=== PATIENT | male | born 1980 | race Caucasian/White ===

== ENCOUNTER → 2018-04-05 09:21 | Outpatient (CLI) | payer MEDICARE, SELFPAY ==
[2018-04-05 10:51] LABS: Add Manual Diff / Slide Review NO; Basophils Percent Auto 0.5 % (0-2); Eosinophils Percent Auto 2.6 % (2-4); Hematocrit 44.8 % (41-53); Hemoglobin 15.6 g/dL (13.5-17.5); Lymphocytes Percent Auto 23.3 % (25-40); Mean Corpuscular HGB Conc 34.7 % (30-36); Mean Corpuscular Hemoglobin 31.3 PG (26-34); Mean Corpuscular Volume 90.1 fL (80-100); Monocytes Percent Auto 5.6 % (3-14); Neutrophils Absolute Auto 7000 /uL (3000-5900); Platelet Count 209 X10^3/uL (150-400); Red Blood Cell Count 4.98 X10^6/uL (4.5-5.9); White Blood Cell Count 10.3 X10^3/uL (4.5-11.0)
[2018-04-05 11:19] LABS: Alanine Aminotransferase 36 IU/L (21-72); Albumin 4.2 g/dL (3.5-5.0); Albumin Globulin Ratio 1.4 (1.0-2.8); Alkaline Phosphatase 84 U/L (38-126); Aspartate Aminotransferase 27 IU/L (17-59); BUN Creatinine Ratio 21.4 (6-22); Bilirubin Total 0.6 mg/dL (0.2-1.3); Blood Urea Nitrogen 15 mg/dL (9-20); Calcium 9.3 mg/dL (8.4-10.2); Carbon Dioxide 23 mmol/L (22-32); Chloride 105 mmol/L (98-107); Cholesterol 235 mg/dL (140-199); Estimated Glomerular Filt Rate > 60.0 mL/min (>60); Glucose 96 mg/dL (70-100); HDL Cholesterol 33 mg/dL (40-60); HEMOLYSIS < 15 (0-50); Potassium 4.1 mmol/L (3.4-5.1); Sodium 139 mmol/L (137-145); Total Protein 7.2 g/dL (6.3-8.2)
[2018-04-05 11:27] LABS: Triglycerides 660 mg/dL (35-150)
[2018-04-05 13:46] LABS: TSH w/ Reflex to FT4 2.29 uIU/mL (0.47-4.68)
== END ==
PROVIDERS: PCP Family Medicine; Visit Provider Family Medicine
DX: E78.2 Mixed hyperlipidemia (principal); Z00.00 Encounter for general adult medical examination without abnormal findings; I42.9 Cardiomyopathy, unspecified
CPT/HCPCS: 36415; 80053; 80061; 84443; 85025

== ENCOUNTER → 2019-05-05 06:52 | Outpatient (CLI) | payer OTHER, MEDICAID, SELFPAY ==
--- NOTE | 2019-05-05 | DI.MRI.S_ITS ---
PROCEDURE: MR HEAD/BRAIN WO/W CON INDICATIONS: FOLLOW UP HISTORY OF FACIAL ANGIOFIBROMA EXCISED TECHNIQUE: Noncontrast axial T1 spin echo, axial T2 fast spin echo, sagittal and axial FLAIR, coronal T2 fast spin echo, axial gradient echo, axial diffusion and ADC through the brain. After the administration of contrast, axial and coronal 3D VIBE or T1 spin echo with fat saturation through the brain. COMPARISON: [facility], CT, HEAD WITHOUT CONTRAST, 12/02/2013, 15:47. [facility], CT, HEAD WITHOUT CONTRAST, 11/23/2014, 11:31. [facility], CT, HEAD WITHOUT CONTRAST, 06/21/2013, 11:37. [facility], MR, ICVGF-IPGK-RGAN W&WO CONTRAST, 02/12/2013, 16:39. [facility], CT, HEAD WITHOUT CONTRAST, 09/02/2013, 11:38. [facility], MR, BRAIN W&WO CONTRAST, 12/02/2014, 9:56. [facility], MR, BRAIN W&WO CONTRAST, 12/27/2016, 7:51. [facility], MR, BRAIN W&WO CONTRAST, 04/05/2016, 7:51. [facility], MR, BRAIN W&WO CONTRAST, 12/13/2017, 13:24. FINDINGS: Image quality: Excellent. CSF Spaces: Basal cisterns are patent. No extra-axial fluid collections. Ventricles are normal in size and shape. Brain: No midline shift. No intracranial bleeds or masses. A small area of subcortical T2/FLAIR hyperintensity in the inferior left frontal lobe appears unchanged. No abnormal intracranial enhancement. The brainstem appears normal. There are several foci of T2/FLAIR hyperintensity in the periventricular white matter bilaterally, most likely secondary to chronic small vessel ischemic changes. Diffusion-weighted images demonstrate no acute ischemic insults. Normal intravascular flow voids are present. Skull and face: Postsurgical changes are again noted in the left frontal area with associated changes in frontal calvarium, left ethmoid and maxillary sinus and part of the nasal septum. Overall, there is no significant change from last exam. No abnormal enhancement Orbits appear normal. Sinuses: Mastoids appear clear. Mild maxillary sinus mucosal thickening bilaterally. IMPRESSION: 1. Stable postsurgical changes in the left frontal bone, left ethmoid and maxillary sinuses and left nasal septum. No recurrent mass or abnormal intracranial enhancement. Dictated by: Alfredo Nieves M.D. on 05/05/2019 at 9:50 Approved by: Alfredo Nieves M.D. on 05/05/2019 at 11:40
== END ==
PROVIDERS: PCP Student in an Organized Health Care Education/Training Program; Visit Provider Student in an Organized Health Care Education/Training Program
DX: Z09 Encounter for follow-up examination after completed treatment for conditions other than malignant neoplasm (principal); Z86.018 Personal history of other benign neoplasm
CPT/HCPCS: 70553

== ENCOUNTER → 2019-08-10 15:32 | Outpatient (ROUT) | payer MEDICARE, MEDICAID, SELFPAY ==
[2019-08-10 15:47] LABS: Ur Specific Gravity Normal (Normal); Urine Tetrahydrocannabinol Positive (Negative); Urine pH Normal (Normal)
[2019-08-10 15:48] LABS: UR Morphine/Opiate cutoff 300 Positive (Negative); Ur Creatinine Normal (Normal); Urine Amphetamines Negative (Negative); Urine Barbiturates Negative (Negative); Urine Benzodiazepines Positive (Negative); Urine Cocaine Negative (Negative); Urine MDMA Negative (Negative); Urine Methadone Negative (Negative); Urine Methamphetamines Negative (Negative); Urine Oxycodone Positive (Negative); Urine Phencyclidine Negative (Negative); Urine Tricyclic Antidepressant Negative (Negative)
== END ==
PROVIDERS: PCP Student in an Organized Health Care Education/Training Program; Visit Provider Student in an Organized Health Care Education/Training Program
DX: G89.29 Other chronic pain (principal)
CPT/HCPCS: 80305

== ENCOUNTER 2020-06-13 14:19 | Emergency (ER) | payer MEDICARE, MEDICAID, SELFPAY ==
[2020-06-13 14:47] VITALS: BP 154/95; PULSE 91; RESP 20; TEMP 36.8; O2SAT 99; BMI 33.2
--- NOTE | 2020-06-13 15:44 | DI.RAD.S_ITS ---
PROCEDURE: XR THORACIC SPINE 3V INDICATIONS: lumbar and low thoraci pain TECHNIQUE: 3 views of the thoracic spine were acquired. COMPARISON: None. FINDINGS: Bones: No fractures or dislocations. No suspicious bony lesions. Twelve pairs of ribs are noted, and appear intact where visualized. Mild generalised thoracic spine degenerative disc disease but no area of compression fracture or subluxation is found. Soft tissues: No paravertebral stripe thickening. IMPRESSION: Chronic appearing mild to moderate degenerative disc disease overall, without trauma or subluxation. Dictated by: Chente Esquivel M.D. on 06/13/2020 at 17:00 Approved by: Chente Esquivel M.D. on 06/13/2020 at 17:00
--- NOTE | 2020-06-13 15:44 | DI.RAD.S_ITS ---
PROCEDURE: XR LUMBAR SPINE 2-3V INDICATIONS: lumbar and low thoraci pain TECHNIQUE: 3 views of the lumbar spine were acquired. COMPARISON: None. FINDINGS: Bones: 5 [id number] vertebrae are present. There is levo scoliotic bony alignment centered at L2. No vertebral body compression fractures. No suspicious bony lesions. Moderate degenerative disc disease is present overall, but most pronounced at L5-S1 and L2-L3. There is a superior endplate mild impaction at L3, likely chronic by appearance. Soft tissues: Overlying bowel gas pattern is normal. No suspicious soft tissue calcifications. IMPRESSION: No definite acute disease. Convex leftward scoliosis centered at L2. L3 superior endplate is mildly impacted inferiorly but the appearance is likely chronic by morphology. No definite acute compression fracture is found. Dictated by: Chente Esquivel M.D. on 06/13/2020 at 16:58 Approved by: Chente Esquivel M.D. on 06/13/2020 at 16:59
[2020-06-13 16:00] VITALS: PULSE 81; RESP 26; O2SAT 97
[2020-06-13 16:01] VITALS: BP 179/85; PULSE 79; RESP 24; O2SAT 97
[2020-06-13] MEDS: MORPHINE 4 MG/ML INJ IV (16:23)
[2020-06-13] MEDS: KETOROLAC 60 MG/2 ML VIAL 15 MG IV (16:23)
[2020-06-13 16:30] VITALS: PULSE 76; RESP 22; O2SAT 96
[2020-06-13 16:31] VITALS: BP 173/102; PULSE 79; RESP 18; O2SAT 96
--- NOTE | 2020-06-13 16:37 | ED.BACK ---
HPI - Back Pain/Injury <BRAD Canales - Last Filed: 06/14/20 01:29> General Chief Complaint: Back Pain/Injury Stated Complaint: Back Pain Time Seen by Provider: 06/13/20 14:59 Source: patient Mode of arrival: EMS Limitations: no limitations History of Present Illness HPI Narrative: This is a 40-year-old male, smoker, who has a history of Marfan's syndrome with rotary joints who presents to ED with EMS with localized severe lumbar and lower thoracic pain. Patient reports pain started 4-5 days ago but it has been progressively getting worse and he associated with after usual/routine boat ride. He denies recent injury or trauma, lifting heavy objects or fall. He reports pain increases with movements, turning, or changing in position. Patient reports he is ambulatory and has been using a walker but he takes time for him to adjust his positions. He has been taking oxycodone and OxyContin with Valium as his routine pain management without much improvement. Patient denies fever, chills, nausea or vomiting, rash, history of spine instrumentation or IV drug use. Patient denies incontinence for urine or stool. He denies urinary symptoms. He denies tingling or numbness to lower extremities but feels his right medial knee feels cold. He voided in the urinal which was a bedside. Related Data Home Medications Medication Instructions Recorded Confirmed diazepam 10 mg tablet 10 mg PO TID 06/18/19 06/18/19 lorazepam 2 mg tablet 2 mg PO BEDTIME 06/18/19 06/18/19 zolpidem 10 mg tablet 10 mg PO BEDTIME 06/18/19 06/18/19 amlodipine 06/14/20 aspirin 81 mg 06/14/20 diazepam 06/14/20 oxycodone 06/14/20 oxycodone [OxyContin] mg PO 06/14/20 pantoprazole PO 06/14/20 Allergies Allergy/AdvReac Type Severity Reaction Status Date / Time heparin Allergy Severe SEVERE Verified 06/13/20 16:29 REACTION WITH DROP IN PLATELETS Review of Systems <BRAD Canales - Last Filed: 06/14/20 01:29> Review of Systems Narrative: General: Denies fever, chills, fatigue, malaise, sweats. HEENT: Denies sinus pain, ear pain, sore throat, difficulty swallowing, dizziness. Respiratory: Denies dyspnea, cough, wheezing, hemoptysis, sputum. Cardiovascular: Denies chest pain, palpitations, orthopnea, edema. Gastrointestinal: Denies nausea, vomiting, abdominal pain, diarrhea, constipation, melena. : Denies dysuria, frequency, incontinence, hematuria, urinary retention. Musculoskeletal: See HPI Skin: Denies rash, skin lesions, or other. Neurologic: Denies weakness, headache, numbness, change in speech, confusion, seizures, incoordination. Psychiatric: No concerning psychosocial issues. 12-point review of systems is negative except for those stated above. Patient History <BRAD Canales - Last Filed: 06/14/20 01:29> Medical History (Updated 06/14/20 @ 00:59 by BRAD Canales) Excessive daytime sleepiness (Chronic) Fatigue (Chronic) GERD (gastroesophageal reflux disease) (Acute) Hyperlipidemia (Acute) Marfan's syndrome (Acute) Obesity (BMI 30-39.9) (Chronic) Obstructive sleep apnea (Chronic) Social History Smoking Status: Current some day smoker Smoking Status: Current some day smoker alcohol intake frequency: 0-2 drinks per day Substance Use Type: marijuana Exam <BRAD Canales - Last Filed: 06/14/20 01:29> Narrative Exam Narrative: GEN: Alert, oriented x 3, well appearing and nourished, and moderate distress from pain. Facial grimacing with moaning and groaning when patient has to change body position. Head: Normal cephalic, atraumatic. No scalp or temporal tenderness, palpable mass or rash. EYES: Pupils are equal, round, and reactive to light and accommodation. Extraocular muscles are intact bilaterally. There is no subconjunctival hemorrhage, exudate and sclera non-icteric. ENT: Hearing grossly intact. Nose without bleeding, purulent discharge or deviation. Mucous membrane moist, no mucosal lesion. Throat without erythema, tonsillar hypertrophy or exudate. Uvula in midline, airway patent. Neck: Trachea in midline. No JVD, non-tender without lymphadenopathy. No masses or thyroid megaly. Supple, non-tender and no meningeal signs. CARDIAC: Normal regular rate and rhythm without murmurs, gallops, or rubs. No chest wall tenderness. No peripheral edema, cyanosis or pallor. Capillary refill is less than 2 seconds. RESPIRATORY: Lungs are clear to auscultate bilaterally. No cough, wheezes, rales, or rhonchi. No stridor, respiratory distress, increase work of breathing, or accessary muscle used. ABD: Abdomen soft, nontender and non-distended. No guarding or rebound tenderness to palpate. Bowel sounds are normal in all 4 quadrants. There is no palpable masses or organomegaly. EXT: Full painless ROM of all extremities with no loss of sensation, strength, effusion or edema. Loose and flexible joints in extremities. SKIN: Warm, dry, normal color for patient. No erythema, lesions or rash over visible areas. NEUROLOGICAL: Alert and oriented to place, time and person. Sensation and motor function intact bilaterally. No facial droops, dysphasia. PSYCHIATRIC: Good judgement and reason, without hallucinations, abnormal affect or abnormal behaviors during the examination. Patient is not suicidal. Initial Vital Signs Initial Vital Signs: Vital Signs Temperature 98.3 F 06/13/20 14:47 Pulse Rate 91 H 06/13/20 14:47 Respiratory Rate 06/13/20 14:47 Blood Pressure 154/95 H 06/13/20 14:47 Pulse Oximetry 99 06/13/20 14:47 Back/Spine/Pelvis Thoracic/Lumbar Spine: No surgical scar(s) present, No mass, pain with thoraco-lumbar ROM, No paraspinal tenderness, thoraco-lumbar ROM limited, thoracic spinal tenderness, lumbar spinal tenderness, straight leg raise positive and other (intact rectal tone (standby assistance by MOVEMANChay Parker)) Sacroiliac Joints: nontender Sacrum: no ecchymosis, no erythema and no swelling Coccyx: no swelling and no tenderness <Alexsandra Lambert MD - Last Filed: 06/14/20 18:56> Initial Vital Signs Initial Vital Signs: Vital Signs Temperature 98.3 F 06/13/20 14:47 Pulse Rate 91 H 06/13/20 14:47 Respiratory Rate 06/13/20 14:47 Blood Pressure 154/95 H 06/13/20 14:47 Pulse Oximetry 99 06/13/20 14:47 Scores <BRAD Canales - Last Filed: 06/14/20 01:29> GCS [place] coma scale eye opening: Spontaneous Aminata coma scale verbal response: Orientated Aminata coma scale motor response: Obey commands Aminata coma scale total score: 15 Course <BRAD Canales - Last Filed: 06/14/20 01:29> Orders Ordered: Discontinued Medications Ketorolac Tromethamine (Toradol) 15 mg IV NOW ONE Stop: 06/13/20 15:48 Last Admin: 06/13/20 16:23 Dose: 15 mg Documented by: BTONER Morphine Sulfate (Morphine) 4 mg IV NOW ONE Stop: 06/13/20 15:45 Last Admin: 06/13/20 16:23 Dose: 4 mg Documented by: BTONER Vital Signs Vital signs: Vital Signs - 8 hr 06/13/20 17:00 Pulse Rate 75 Respiratory Rate 13 Pulse Oximetry 97 <Alexsandra Lambert MD - Last Filed: 06/14/20 18:56> Orders Ordered: Discontinued Medications Ketorolac Tromethamine (Toradol) 15 mg IV NOW ONE Stop: 06/13/20 15:48 Last Admin: 06/13/20 16:23 Dose: 15 mg Documented by: BTONER Morphine Sulfate (Morphine) 4 mg IV NOW ONE Stop: 06/13/20 15:45 Last Admin: 06/13/20 16:23 Dose: 4 mg Documented by: BTONER Vital Signs Vital signs: Vital Signs - 8 hr 06/13/20 17:00 Pulse Rate 75 Respiratory Rate 13 Pulse Oximetry 97 MDM - Back Pain/Injury <BRAD Canales - Last Filed: 06/14/20 01:29> Differential Diagnosis Differential diagnosis: Likely strain of lumbar region, thoracic back pain, discitis and other (Spinal stenosis, spine fracture, spinal subluxation, pyelonephritis,) Medical Records Attestation: I reviewed the patient's medical records. Lab Data Attestation: I reviewed the patient's lab results. Result diagrams: 06/13/20 17:27 06/13/20 17:27 Labs: Lab Results 06/13/20 06/13/20 Range/Units 17:27 17:27 WBC 8.0 (4.5-11.0) X10^3/uL RBC 4.62 (4.5-5.9) X10^6/uL Hgb 14.6 (13.5-17.5) g/dL Hct 41.6 (41-53) % MCV 90.0 (80-100) fL MCH 31.5 (26-34) PG MCHC 35.0 (30-36) % RDW 13.0 (11.6-14.8) % Plt Count 181 (150-400) X10^3/uL Neut % (Auto) 60.3 (50-75) % Lymph % (Auto) 30.8 (25-40) % [place] % (Auto) 6.2 (3-14) % Eos % (Auto) 2.2 (2-4) % Baso % (Auto) 0.5 (0-2) % Neut # (Auto) 4800 (8011-4379) /uL Lymph # (Auto) 2500 (5846-9320) /uL [place] # (Auto) 500 (0-900) /uL Eos # (Auto) 200 (0-450) /uL Baso # (Auto) 0 (0-100) /uL Sodium 139 (137-145) mmol/L Potassium 4.3 (3.4-5.1) mmol/L Chloride 107 (98-107) mmol/L Carbon Dioxide 25 (22-32) mmol/L BUN 19 (9-20) mg/dL Creatinine 0.93 (0.66-1.25) mg/dL Estimated GFR > 60.0 (>60) mL/min BUN/Creatinine Ratio 20.4 (6-22) Glucose 94 (70-100) mg/dL Calcium 9.6 (8.4-10.2) mg/dL Urine Dip Bedside Urine Glucose Negative Bedside Urine Bilirubin - Negative Bedside Urine Ketone - Negative Urine Specific Cos Cob 1.020 Bedside Urine Occult Blood - Negative Bedside Urine pH 6.5 Bedside Urine Protein - Negative Bedside Urine Urobilinogen - Negative Bedside Urine Nitrite - Negative Bedside Urine Leukocytes - Negative Esterase Imaging Data XR-Thoracic: Radiologist's Impression: [address] [address] XRay Report Signed Patient: Ap Giron EMR#: [id number] : 1980Acct:[id number] Age/Sex: 40 / MDate of Service: 06/13/20 Loc: ED Accession Number: [id number] Procedure: XR thoracic spine 3V Ordering Provider: Scra BravoP PROCEDURE: XR THORACIC SPINE 3V INDICATIONS: lumbar and low thoraci pain TECHNIQUE: 3 views of the thoracic spine were acquired. COMPARISON: None. FINDINGS: Bones: No fractures or dislocations. No suspicious bony lesions. Twelve pairs of ribs are noted, and appear intact where visualized. Mild generalised thoracic spine degenerative disc disease but no area of compression fracture or subluxation is found. Soft tissues: No paravertebral stripe thickening. IMPRESSION: Chronic appearing mild to moderate degenerative disc disease overall, without trauma or subluxation. Dictated by: Chente Esquivel M.D. on 06/13/2020 at 17:00 Approved by: Chente Esquivel M.D. on 06/13/2020 at 17:00 XR-Lumbar: Radiologist's Impression: [place] [address] XRay Report Signed Patient: Ap Giron EMR#: [id number] : 1980Acct:[id number] Age/Sex: 40 / MDate of Service: 06/13/20 Loc: ED Accession Number: [id number] Procedure: XR lumbar spine 2-3V Ordering Provider: Scar rBavo [facility] PROCEDURE: XR LUMBAR SPINE 2-3V INDICATIONS: lumbar and low thoraci pain TECHNIQUE: 3 views of the lumbar spine were acquired. COMPARISON: None. FINDINGS: Bones: 5 [id number] vertebrae are present. There is levo scoliotic bony alignment centered at L2. No vertebral body compression fractures. No suspicious bony lesions. Moderate degenerative disc disease is present overall, but most pronounced at L5-S1 and L2-L3. There is a superior endplate mild impaction at L3, likely chronic by appearance. Soft tissues: Overlying bowel gas pattern is normal. No suspicious soft tissue calcifications. IMPRESSION: No definite acute disease. Convex leftward scoliosis centered at L2. L3 superior endplate is mildly impacted inferiorly but the appearance is likely chronic by morphology. No definite acute compression fracture is found. Dictated by: Chente Esquivel M.D. on 06/13/2020 at 16:58 Approved by: Chente Esquivel M.D. on 06/13/2020 at 16:59 [facility] Narrative Medical decision making narrative: This is a 40-year-old male who has history of Marfan's syndrome and has very loose and flexible joints who takes OxyContin, oxycodone, Valium daily for pain management presents to ED with progressively worsening lower thoracic and lumbar back pain last 4-5 days. Patient denies history of using IV drug use, instrumentation of spine. Patient denies incontinence, saddle anesthesia. Patient had intact rectal tone per exam. Urine test is not indicating infection. Unremarkable CBC without leukocytosis and normal chemistry test. Physical exam on his back without rash, radiculopathy and he had spine tenderness in low back. Given the patient's Marfan's syndrome and flexible/loose joints with non-traumatic back pain, MRI test was the first choice but they have a full schedule today and was unable to obtain the test today. Given the situation, x-ray test was obtained on lumbar and thoracic. Lumbar x-ray shows no definite acute disease appreciated. Appears to be patient has scoliosis centered at L2, L3 and appearance is likely chronic. There is no definite acute compression fracture appreciated. Thoracic x-ray test shows chronic appearing mild to moderate degenerative disc disease overall without trauma or subluxation appreciated. Patient was medicated with IV Toradol and Morphine initially. Patient reports recurring pain before leaving ED and informed it is okay to take his own medications. Findings were discussed with the patient of not being able to pursue MRI test today. He was able to ambulate with a walker in stable gait with minimal assistance. Patient states he sees salesforce specialist at when offered a referral to [facility]. In shared decision making, patient elects to follow-up his primary care physician and orthopedic/salesforce specialist for further evaluation and possible advanced imaging test with return precautions to ED. no new pain medication has been prescribed since he takes oxycodone and OxyContin. Patient advised to take [id number] Tylenol and NSAIDS to add along the current medication regimen. Patient staffed with Dr. Lambert with physical findings, xray test result, lab result and treatment plan. <Alexsandra Lambert MD - Last Filed: 06/14/20 18:56> Lab Data Labs: Lab Results 06/13/20 06/13/20 Range/Units 17:27 17:27 WBC 8.0 (4.5-11.0) X10^3/uL RBC 4.62 (4.5-5.9) X10^6/uL Hgb 14.6 (13.5-17.5) g/dL Hct 41.6 (41-53) % MCV 90.0 (80-100) fL MCH 31.5 (26-34) PG MCHC 35.0 (30-36) % RDW 13.0 (11.6-14.8) % Plt Count 181 (150-400) X10^3/uL Neut % (Auto) 60.3 (50-75) % Lymph % (Auto) 30.8 (25-40) % [place] % (Auto) 6.2 (3-14) % Eos % (Auto) 2.2 (2-4) % Baso % (Auto) 0.5 (0-2) % Neut # (Auto) 4800 (6713-2194) /uL Lymph # (Auto) 2500 (7950-3892) /uL [place] # (Auto) 500 (0-900) /uL Eos # (Auto) 200 (0-450) /uL Baso # (Auto) 0 (0-100) /uL Sodium 139 (137-145) mmol/L Potassium 4.3 (3.4-5.1) mmol/L Chloride 107 (98-107) mmol/L Carbon Dioxide 25 (22-32) mmol/L BUN 19 (9-20) mg/dL Creatinine 0.93 (0.66-1.25) mg/dL Estimated GFR > 60.0 (>60) mL/min BUN/Creatinine Ratio 20.4 (6-22) Glucose 94 (70-100) mg/dL Calcium 9.6 (8.4-10.2) mg/dL Urine Dip Bedside Urine Glucose Negative Bedside Urine Bilirubin - Negative Bedside Urine Ketone - Negative Urine Specific Cos Cob 1.020 Bedside Urine Occult Blood - Negative Bedside Urine pH 6.5 Bedside Urine Protein - Negative Bedside Urine Urobilinogen - Negative Bedside Urine Nitrite - Negative Bedside Urine Leukocytes - Negative Esterase Discharge Plan Departure Patient Disposition: Home Clinical Impression: Low back pain Qualifiers: Chronicity: unspecified Back pain laterality: bilateral Sciatica presence: without sciatica Qualified Code(s): M54.5 - Low back pain Discharge Date/Time: 06/13/20 18:35 Instructions: DI for Low Back Pain Activity Restrictions/Additional Instructions: You have been diagnosed with [low back pain, in low thoracic and lumbar region. Blood test are assuring. X-rays test does not show acute findings but mild to moderate degenerative disc disease. You may require further imaging test. Unfortunately we were not able to get MRI test today.]. What to do: *Take your medications as directed. *Follow up with your primary care provider in 2-3 days, call for an appointment. Let them know you were seen in the ED and that we asked you to be seen in follow up. *Return to ED if you have any new, worsening, or concerning symptoms, such as chest pain, breathing difficulty, unable to tolerate fluids, incontinence for bladder or stool, increasing pain/numbness/weakness, fever, rash or other acute concerns Prescriptions: No Action amlodipine 5 mg tablet RF: 0 pantoprazole 40 mg tablet,delayed release (DR/EC) PO RF: 0 diazepam 10 mg tablet RF: 0 oxycodone 20 mg tablet RF: 0 oxycodone [OxyContin] 80 mg tablet,oral only,ext.rel.12 hr PO RF: 0 aspirin 81 mg RF: 0 zolpidem 10 mg tablet 10 mg PO BEDTIME RF: 0 lorazepam 2 mg tablet 2 mg PO BEDTIME RF: 0 diazepam 10 mg tablet 10 mg PO TID RF: 0 Referrals: Ap Morrissey MD [Primary Care Provider] - <Alexsandra Lambert MD - Last Filed: 06/14/20 18:56> Cosign ED Attending Cosvipinature Attestation: I was immediately available in the department for consultation throughout this patient's visit. I agree with documentation as above. Alexsandra Lambert MD
--- NOTE | 2020-06-13 16:37 | PC.NURSE ---
pt provided pain medication, assisted in removing pants for xray.
[2020-06-13 17:00] VITALS: PULSE 75; RESP 13; O2SAT 97
[2020-06-13 17:32] LABS: Add Manual Diff / Slide Review NO; Basophils Absolute Auto 0 /uL (0-100); Basophils Percent Auto 0.5 % (0-2); Eosinophils Absolute Auto 200 /uL (0-450); Eosinophils Percent Auto 2.2 % (2-4); Hematocrit 41.6 % (41-53); Hemoglobin 14.6 g/dL (13.5-17.5); Lymphocytes Absolute Auto 2500 /uL (1100-4500); Lymphocytes Percent Auto 30.8 % (25-40); Mean Corpuscular Hemoglobin 31.5 PG (26-34); Monocytes Absolute Auto 500 /uL (0-900); Monocytes Percent Auto 6.2 % (3-14); Neutrophils Absolute Auto 4800 /uL (1500-7000); Neutrophils Percent Auto 60.3 % (50-75); Platelet Count 181 X10^3/uL (150-400); Red Blood Cell Count 4.62 X10^6/uL (4.5-5.9)
[2020-06-13 17:45] LABS: BUN Creatinine Ratio 20.4 (6-22); Blood Urea Nitrogen 19 mg/dL (9-20); Calcium 9.6 mg/dL (8.4-10.2); Carbon Dioxide 25 mmol/L (22-32); Chloride 107 mmol/L (98-107); Estimated Glomerular Filt Rate > 60.0 mL/min (>60); Glucose 94 mg/dL (70-100); HEMOLYSIS 15 (0-50); Potassium 4.3 mmol/L (3.4-5.1); Sodium 139 mmol/L (137-145)
== END 2020-06-13 18:35 | disposition home or self-care (01) ==
PROVIDERS: Emergency Provider Nurse Practitioner Family; PCP Family Medicine
DX: M54.5 Low back pain (principal); M54.6 Pain in thoracic spine; Q87.43 Marfan syndrome with skeletal manifestation
CPT/HCPCS: 36415; 72072; 72100; 80048; 81003; 85025; 96374; 96375; 99283; 99284; J1885; J2270

== ENCOUNTER → 2020-12-07 08:18 | Outpatient (CLI) | payer MEDICARE, MEDICAID, SELFPAY | PROVIDERS: PCP Family Medicine; Referring Provider Family Medicine; Visit Provider Family Medicine | DX: F11.90 Opioid use, unspecified, uncomplicated (principal); Z79.899 Other long term (current) drug therapy | CPT/HCPCS: 80307; G0481 ==

== ENCOUNTER → 2021-04-08 08:20 | Outpatient (CLI) | payer MEDICARE, MEDICAID, SELFPAY ==
[2021-04-08 09:35] LABS: Add Manual Diff / Slide Review NO; Basophils Absolute Auto 0 /uL (0-100); Basophils Percent Auto 0.5 % (0-2); Eosinophils Absolute Auto 200 /uL (0-450); Eosinophils Percent Auto 1.6 % (2-4); Hematocrit 42.7 % (41-53); Hemoglobin 14.4 g/dL (13.5-17.5); Lymphocytes Absolute Auto 2200 /uL (1100-4500); Lymphocytes Percent Auto 22.8 % (25-40); Mean Corpuscular HGB Conc 33.7 % (30-36); Mean Corpuscular Volume 88.9 fL (80-100); Monocytes Absolute Auto 700 /uL (0-900); Neutrophils Absolute Auto 6400 /uL (1500-7000); Neutrophils Percent Auto 68.1 % (50-75); Platelet Count 180 X10^3/uL (150-400); White Blood Cell Count 9.4 X10^3/uL (4.5-11.0)
[2021-04-08 10:23] LABS: BUN Creatinine Ratio 17.3 (6-22); Blood Urea Nitrogen 14 mg/dL (9-20); Calcium 9.6 mg/dL (8.4-10.2); Carbon Dioxide 28 mmol/L (22-32); Chloride 104 mmol/L (98-107); Cholesterol 176 mg/dL (140-199); Estimated Glomerular Filt Rate > 60.0 mL/min (>60); Glucose 97 mg/dL (70-100); HDL Cholesterol 43 mg/dL (40-60); HEMOLYSIS < 15 (0-50); LDL Cholesterol Calculated 103 mg/dL (<100); Potassium 4.6 mmol/L (3.4-5.1); Sodium 139 mmol/L (137-145); Triglycerides 150 mg/dL (35-150)
== END ==
PROVIDERS: PCP Family Medicine; Referring Provider Family Medicine; Visit Provider Family Medicine
DX: D50.8 Other iron deficiency anemias (principal); E78.2 Mixed hyperlipidemia; I10 Essential (primary) hypertension; F11.90 Opioid use, unspecified, uncomplicated
CPT/HCPCS: 36415; 80048; 80061; 85025

== ENCOUNTER → 2021-06-29 10:39 | Outpatient (CLI) | payer MEDICARE, MEDICAID, SELFPAY ==
[2021-06-29 12:57] LABS: UR Morphine/Opiate cutoff 300 Negative (Negative); Ur Creatinine Normal (Normal); Ur Specific Gravity Normal (Normal); Urine Amphetamines Negative (Negative); Urine Barbiturates Negative (Negative); Urine Benzodiazepines Positive (Negative); Urine Cocaine Negative (Negative); Urine MDMA Negative (Negative); Urine Methamphetamines Negative (Negative); Urine Phencyclidine Negative (Negative); Urine Tetrahydrocannabinol Positive (Negative); Urine pH Normal (Normal)
[2021-06-29 12:58] LABS: Urine Methadone Negative (Negative); Urine Oxycodone Positive (Negative); Urine Tricyclic Antidepressant Negative (Negative)
== END ==
PROVIDERS: PCP Family Medicine; Referring Provider Family Medicine; Visit Provider Family Medicine
DX: F11.90 Opioid use, unspecified, uncomplicated (principal); Z79.899 Other long term (current) drug therapy
CPT/HCPCS: 80305

== ENCOUNTER 2022-07-05 12:45 | Emergency (ER) | payer MEDICARE, MEDICAID, SELFPAY ==
[2022-07-05] VITALS (7 sets, daily range): BP systolic 145–160; BP diastolic 97–105; PULSE 71–100; RESP 16–20; TEMP 36.8–37.1; O2SAT 95–100; BMI 36.7
[2022-07-05 13:57] LABS: Add Manual Diff / Slide Review NO; Basophils Absolute Auto 100 /uL (0-100); Basophils Percent Auto 0.9 % (0-2); Eosinophils Absolute Auto 100 /uL (0-450); Eosinophils Percent Auto 0.7 % (2-4); Hematocrit 44.9 % (41-53); Hemoglobin 15.8 g/dL (13.5-17.5); Lymphocytes Absolute Auto 1700 /uL (1100-4500); Lymphocytes Percent Auto 24.4 % (25-40); Mean Corpuscular HGB Conc 35.2 % (30-36); Mean Corpuscular Hemoglobin 31.3 PG (26-34); Mean Corpuscular Volume 88.9 fL (80-100); Monocytes Absolute Auto 500 /uL (0-900); Monocytes Percent Auto 7.3 % (3-14); Neutrophils Absolute Auto 4800 /uL (1500-7000); Neutrophils Percent Auto 66.7 % (50-75); Platelet Count 208 X10^3/uL (150-400); Red Blood Cell Count 5.06 X10^6/uL (4.5-5.9); Red Cell Distribution Width 13.4 % (11.6-14.8); White Blood Cell Count 7.1 X10^3/uL (4.5-11.0)
[2022-07-05 14:17] LABS: Alanine Aminotransferase 21 IU/L (<50); Albumin 4.4 g/dL (3.5-5.0); Albumin Globulin Ratio 1.3 (1.0-2.8); Alkaline Phosphatase 75 U/L (38-126); Aspartate Aminotransferase 21 IU/L (17-59); BUN Creatinine Ratio 11.4 (6-22); Bilirubin Total 0.8 mg/dL (0.2-1.3); Blood Urea Nitrogen 10 mg/dL (9-20); Calcium 9.4 mg/dL (8.4-10.2); Carbon Dioxide 27 mmol/L (22-32); Chloride 105 mmol/L (98-107); Estimated Glomerular Filt Rate > 60 mL/min (>60); Globulin 3.3 g/dL (1.7-4.1); Glucose 107 mg/dL (70-100); HEMOLYSIS < 15 (0-50); Lipase 55 U/L (23-300); Potassium 4.3 mmol/L (3.4-5.1); Sodium 142 mmol/L (137-145); Total Protein 7.7 g/dL (6.3-8.2)
--- NOTE | 2022-07-05 16:44 | ED.ABDPAIN ---
HPI - Abdominal Pain General Chief Complaint: Abdominal Pain Stated Complaint: bump/pain on belly button Time Seen by Provider: 07/05/22 16:42 Source: patient Mode of arrival: Family Vehicle History of Present Illness HPI narrative: Patient is a 42-year-old male with history of umbilical hernia hypertension hyperlipidemia diaphragmatic hernia presenting today with in his abdomen. He said were his umbilicus use to be agrees to be some pouching, he says it has happened 3 times he was able to push it in but his abdomen is still sore. He has no nausea no vomiting he is passing gas. No fevers or chills. Related Data Home Medications Medication Instructions Recorded Confirmed lorazepam 2 mg tablet 2 mg PO BEDTIME 06/18/19 06/16/20 amlodipine 5 mg tablet 06/14/20 06/16/20 aspirin 81 mg 06/14/20 06/16/20 diazepam 10 mg tablet 06/14/20 06/16/20 oxycodone 20 mg tablet 06/14/20 06/16/20 oxycodone 80 mg tablet,crush mg PO 06/14/20 06/16/20 resistant,extended release 12 hr (OxyContin) pantoprazole 40 mg tablet,delayed PO 06/14/20 06/16/20 release Allergies Allergy/AdvReac Type Severity Reaction Status Date / Time heparin Allergy Severe SEVERE Verified 07/05/22 13:12 REACTION WITH DROP IN PLATELETS Review of Systems Review of Systems Narrative: GENERAL: Denies chills, fatigue, malaise, fever, sweats, travel HEENT: Denies sinus pain, ear pain, sore throat, difficulty swallowing, neck pain RESPIRATORY: Denies dyspnea, cough, wheezing, hemoptysis, sputum. CARDIOVASCULAR: Denies chest pain, palpitations, orthopnea, edema GASTROINTESTINAL: See HPI : Denies dysuria, frequency, incontinence, hematuria, urinary retention, flank pain. MUSCULOSKELETAL: Denies weakness, joint pain, or bony pain SKIN: No rash, no erythema, no pruritus NEUROLOGIC: Denies weakness, dizziness, headache, numbness, change in speech, confusion PSYCHIATRIC: No concerning psychosocial issues. 12 point review of systems is negative except for those stated above and HPI Patient History Medical History Anuradha-Danlos syndrome Excessive daytime sleepiness Fatigue GERD (gastroesophageal reflux disease) Hyperlipidemia Marfan's syndrome Obesity (BMI 30-39.9) Obstructive sleep apnea Social History Smoking Status: Current some day smoker Smoking Status: Current some day smoker tobacco type: cigarettes alcohol intake frequency: 0-2 drinks per day Substance Use Type: marijuana Exam Initial Vital Signs Initial Vital Signs: Vital Signs Temperature 98.8 F 07/05/22 13:13 Pulse Rate 100 H 07/05/22 13:13 Respiratory Rate 20 07/05/22 13:13 Blood Pressure 160/105 H 07/05/22 13:13 Pulse Oximetry 100 07/05/22 13:13 Oxygen Delivery Method 07/05/22 13:13 GENERAL: Alert cooperative 42-year-old male and in no acute distress. HEENT: Head atraumatic,EOMI, pupils reactive, face symmetric, moist mucous membranes CARDIOVASCULAR: Regular rate and rhythm without murmurs, rubs or gallops. RESPIRATORY: Breath sounds equal bilaterally, no wheezes rales or rhonchi. ABDOMEN: Soft, tender around previous umbilicus it is been stone however no outpouching no hernia appreciated no swelling normal bowel EXTREMITIES: Normal range of motion, no clubbing or edema. Neurovascularly intact NEUROLOGICAL: Alert and oriented x4.Normal gait and speech. SKIN: Warm, dry, no laceration, no petechiae, no rashes or lesions. Course Orders Ordered: ED Orders 07/05/22 13:19 EKG-12 Lead Stat 07/05/22 13:50 Complete Blood Count AUTO DIFF Stat Comprehensive Metabolic Panel Stat Lipase Stat 07/05/22 16:53 CT abdomen pelvis w con Stat Discontinued Medications Ketorolac Tromethamine (Ketorolac 30 Mg/Ml Vial) 15 mg IV NOW ONE Stop: 07/05/22 16:54 Last Admin: 07/05/22 17:23 Dose: Not Given Documented By: [facility] Vital Signs Vital signs: Vital Signs - 8 hr 07/05/22 13:13 07/05/22 15:12 07/05/22 15:05 Temperature 98.8 F 98.3 F Pulse Rate 100 H 86 85 Respiratory Rate 20 16 Blood Pressure 160/105 H 148/97 H Pulse Oximetry 100 96 97 Oxygen Delivery Method Room Air Room Air 07/05/22 15:06 07/05/22 15:06 07/05/22 15:07 Temperature Pulse Rate 85 Respiratory Rate Blood Pressure 145/105 H 148/97 H Pulse Oximetry 97 Oxygen Delivery Method 07/05/22 15:07 07/05/22 15:30 07/05/22 16:00 Temperature Pulse Rate 82 77 71 Respiratory Rate Blood Pressure Pulse Oximetry 97 96 95 Oxygen Delivery Method MDM - Abdominal Pain Lab Data Result diagrams: 07/05/22 13:50 07/05/22 13:50 Labs: Lab Results 07/05/22 07/05/22 Range/Units 13:50 13:50 WBC 7.1 (4.5-11.0) X10^3/uL RBC 5.06 (4.5-5.9) X10^6/uL Hgb 15.8 (13.5-17.5) g/dL Hct 44.9 (41-53) % MCV 88.9 (80-100) fL MCH 31.3 (26-34) PG MCHC 35.2 (30-36) % RDW 13.4 (11.6-14.8) % Plt Count 208 (150-400) X10^3/uL Neut % (Auto) 66.7 (50-75) % Lymph % (Auto) 24.4 L (25-40) % [place] % (Auto) 7.3 (3-14) % Eos % (Auto) 0.7 L (2-4) % Baso % (Auto) 0.9 (0-2) % Neut # (Auto) 4800 (5015-0914) /uL Lymph # (Auto) 1700 (2057-4586) /uL [place] # (Auto) 500 (0-900) /uL Eos # (Auto) 100 (0-450) /uL Baso # (Auto) 100 (0-100) /uL Sodium 142 (137-145) mmol/L Potassium 4.3 (3.4-5.1) mmol/L Chloride 105 (98-107) mmol/L Carbon Dioxide 27 (22-32) mmol/L BUN 10 (9-20) mg/dL Creatinine 0.88 (0.66-1.25) mg/dL Estimated GFR > 60 (>60) mL/min BUN/Creatinine Ratio 11.4 (6-22) Glucose 107 H (70-100) mg/dL Calcium 9.4 (8.4-10.2) mg/dL Total Bilirubin 0.8 (0.2-1.3) mg/dL AST 21 (17-59) IU/L ALT 21 (<50) IU/L Alkaline Phosphatase 75 (38-126) U/L Total Protein 7.7 (6.3-8.2) g/dL Albumin 4.4 (3.5-5.0) g/dL Globulin 3.3 (1.7-4.1) g/dL Albumin/Globulin Ratio 1.3 (1.0-2.8) Lipase 55 (23-300) U/L Imaging Data CT scan - abdomen/pelvis: Radiologist's Impression: CT Scan Report Signed Patient: Ap Giron MR#: [id number] : 1980 Acct:[id number] Age/Sex: 42 / M Date of Service: 07/05/22 Loc: ED Accession Number: [id number] ?? Procedure: CT abdomen pelvis w con Ordering Provider: Libby Cardoso D.O. PROCEDURE:? CT ABDOMEN PELVIS W CON ? INDICATIONS:? ab pain swelling umbilical hernia ? TECHNIQUE:? After the administration of intravenous contrast, axial sections acquired from the lung bases to the pubic symphysis.? Coronal and sagittal reformats were performed.? For radiation dose reduction, the following was used:? automated exposure control, adjustment of mA and/or kV according to patient size.? ? COMPARISON:? None. ? FINDINGS:? Image quality:? Excellent.? ? Lung bases:? Unremarkable. Heart:? No significant findings. ? ABDOMEN: Liver:? Somewhat small liver with prominent caudate lobe.? Findings likely represent cirrhotic change.? No masses. Gallbladder:? Surgically absent.? ? Biliary ducts:? Unremarkable.? ? Pancreas:? Unremarkable.? ? Spleen:? Splenomegaly..? ? Adrenal Glands:? Unremarkable.? ? Kidneys and Ureters:? Unremarkable.? ? ? Stomach and Bowel:? Large hiatal hernia containing stomach.? No evidence of meso-axial gastric volvulus. Peritoneum:? No abnormal intraperitoneal fluid.? No free air.? ? Ventral Wall: ? There are 2 very small ventral abdominal wall defects, both of which contain a small amount of fat. Abdominal Nodes:? No retroperitoneal or mesenteric adenopathy by size criteria.? Vessels:? Aorta and inferior vena cava are normal in size.? 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 ? PELVIS: Pelvic Organs:? Unremarkable.? ? Bladder:? Unremarkable.? ? Pelvic Nodes: No enlarged lymph nodes.? Miscellaneous:? Fat containing right inguinal hernia.? It is small. ? Bones:? Lumbar degenerative change.? No lytic or blastic bony lesions.? Numerous old compression fractures, involving T10, T11, L1, and L4. ? ? IMPRESSION:? ? 1. 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 ? 2. Large hiatal hernia containing stomach. ? 3. Small ventral wall defects with minimal herniated fat, with no evidence of inflammation. ? 4. Right inguinal hernia containing fat. ? 5. Numerous old compression fractures.? This most likely represents severe osteoporosis.? However, consider multiple myeloma as a potential etiology.? ? ? Dictated by: Zaki Jim M.D. on 07/05/2022 at 17:20 ? ? MDM Narrative Medical decision making narrative: Patient overall appears comfortable abdomen is soft no hernia is felt or pre she did CT confirms that there is no hernia. At this time he may have 1 that comes in and out and may need elective surgery however certainly not emergent at this time. It is a reducible hernia that he is likely feeling. Discharge Plan Departure Patient Disposition: Home Clinical Impression: Umbilical hernia Instructions: Diaphragmatic Hernia, Abdominal Hernia Activity Restrictions/Additional Instructions: *You have been diagnosed with hernia *What to do: At this time no hernia seen on CT or exam. However it is likely that you were able to help herself by pushing her hernia back in. If her hernia comes out again which I suspect it will please leg down and try to push it back in herself as you did today. Eventually this will need to be repaired by surgery. However today it is not emergent. *Continue to take medications as directed *Follow up with your primary care provider in 2-3 days or call [phone] *Return to ER if you should have on able to push hernia back in increasing pain, persistent vomiting, distention or any new, worsening or concerning symptoms Prescriptions: No Action amlodipine 5 mg tablet pantoprazole 40 mg tablet,delayed release (DR/EC) PO diazepam 10 mg tablet Label Comments: TAKE 1 TABLET BY MOUTH THREE TIMES DAILYMUST LAST 28 DAYS oxycodone 20 mg tablet oxycodone [OxyContin] 80 mg tablet,oral only,ext.rel.12 hr PO aspirin 81 mg lorazepam 2 mg tablet 2 mg PO BEDTIME Referrals: Ap Morrissey MD [Primary Care Provider] - Visit Report Forms: Patient Portal/API
--- NOTE | 2022-07-05 16:53 | DI.CT.S_ITS ---
PROCEDURE: CT ABDOMEN PELVIS W CON INDICATIONS: ab pain swelling umbilical hernia TECHNIQUE: After the administration of intravenous contrast, axial sections acquired from the lung bases to the pubic symphysis. Coronal and sagittal reformats were performed. For radiation dose reduction, the following was used: automated exposure control, adjustment of mA and/or kV according to patient size. COMPARISON: None. FINDINGS: Image quality: Excellent. Lung bases: Unremarkable. Heart: No significant findings. ABDOMEN: Liver: Somewhat small liver with prominent caudate lobe. Findings likely represent cirrhotic change. No masses. Gallbladder: Surgically absent. Biliary ducts: Unremarkable. Pancreas: Unremarkable. Spleen: Splenomegaly.. Adrenal Glands: Unremarkable. Kidneys and Ureters: Unremarkable. Stomach and Bowel: Large hiatal hernia containing stomach. No evidence of meso-axial gastric volvulus. Peritoneum: No abnormal intraperitoneal fluid. No free air. Ventral Wall: There are 2 very small ventral abdominal wall defects, both of which contain a small amount of fat. Abdominal Nodes: No retroperitoneal or mesenteric adenopathy by size criteria. Vessels: Aorta and inferior vena cava are normal in size. 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 PELVIS: Pelvic Organs: Unremarkable. Bladder: Unremarkable. Pelvic Nodes: No enlarged lymph nodes. Miscellaneous: Fat containing right inguinal hernia. It is small. Bones: Lumbar degenerative change. No lytic or blastic bony lesions. Numerous old compression fractures, involving T10, T11, L1, and L4. IMPRESSION: 1. 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 2. Large hiatal hernia containing stomach. 3. Small ventral wall defects with minimal herniated fat, with no evidence of inflammation. 4. Right inguinal hernia containing fat. 5. Numerous old compression fractures. This most likely represents severe osteoporosis. However, consider multiple myeloma as a potential etiology. Dictated by: Zaki Jim M.D. on 07/05/2022 at 17:20 Approved by: Zaki Jim M.D. on 07/05/2022 at 17:29
--- NOTE | 2022-07-05 17:24 | PC.NURSE ---
Patient declined ketorlac for pain. i have better medications at home, I will wait for the pain to get worse and ask again Provider aware.
== END 2022-07-05 17:52 | disposition home or self-care (01) ==
PROVIDERS: Emergency Provider Emergency Medicine; PCP Family Medicine
DX: K42.9 Umbilical hernia without obstruction or gangrene (principal)
CPT/HCPCS: 36415; 74177; 80053; 83690; 85025; 93005; 99284; Q9967

== ENCOUNTER → 2022-11-01 08:25 | Outpatient (CLI) | payer MEDICARE, MEDICAID, SELFPAY ==
--- NOTE | 2022-11-01 | DI.US.S_ITS ---
PROCEDURE: US ABDOMEN LIMITED INDICATIONS: HERNIA TECHNIQUE: Real-time focused scanning was performed of the abdomen, with image documentation. COMPARISON: [facility], CT, CT ABDOMEN PELVIS W CON, 07/05/2022, 16:59. FINDINGS: Superior to the umbilicus, there is a non reducible fat containing hernia. The hernia orifice measures 1.4 cm. IMPRESSION: Fat containing abdominal wall hernia seen superior to the umbilicus, which is non reducible. Dictated by: Sam Song M.D. on 11/01/2022 at 9:33 Approved by: Sam Song M.D. on 11/01/2022 at 9:34
== END ==
PROVIDERS: PCP Pediatrics; Referring Provider Pediatrics; Visit Provider Pediatrics
DX: K43.6 Other and unspecified ventral hernia with obstruction, without gangrene (principal)
CPT/HCPCS: 76705

== ENCOUNTER → 2023-04-12 10:37 | Outpatient (CLI) | payer MEDICARE, MEDICAID, SELFPAY ==
[2023-04-12 12:23] LABS: Alanine Aminotransferase 19 IU/L (<50); Albumin 4.2 g/dL (3.5-5.0); Albumin Globulin Ratio 1.6 (1.0-2.8); Alkaline Phosphatase 69 U/L (38-126); Aspartate Aminotransferase 21 IU/L (17-59); BUN Creatinine Ratio 17.2 (6-22); Bilirubin Total 0.7 mg/dL (0.2-1.3); Blood Urea Nitrogen 16 mg/dL (9-20); Calcium 9.4 mg/dL (8.4-10.2); Carbon Dioxide 29 mmol/L (22-32); Chloride 105 mmol/L (98-107); Cholesterol 246 mg/dL (140-199); Estimated Glomerular Filt Rate > 60 mL/min (>60); Globulin 2.7 g/dL (1.7-4.1); Glucose 90 mg/dL (70-100); HDL Cholesterol 43 mg/dL (40-60); HEMOLYSIS < 15 (0-50); LDL Cholesterol Calculated 166 mg/dL (<100); Potassium 4.7 mmol/L (3.4-5.1); Sodium 140 mmol/L (137-145); Total Protein 6.9 g/dL (6.3-8.2); Triglycerides 185 mg/dL (35-150)
[2023-04-12 12:58] LABS: Ferritin 18 ng/mL (18-464)
== END ==
PROVIDERS: PCP Pediatrics; Referring Provider Pediatrics; Visit Provider Pediatrics
DX: R79.0 Abnormal level of blood mineral (principal); E78.2 Mixed hyperlipidemia; I10 Essential (primary) hypertension
CPT/HCPCS: 36415; 80053; 80061; 82728

== ENCOUNTER → 2025-02-01 09:15 | Outpatient (CLI) | payer MEDICARE, MEDICAID, SELFPAY ==
--- NOTE | 2025-02-01 09:18 | DI.ECHO.S_ITS ---
[facility] : : [id number] : [place] : : [id number] : : Phone: [phone] Echocardiogram Report + + :Name: ABEL TILLMAN Study Date: 02/01/2025 Height: 77 in : :Hospital ReadingLocation: Weight: 280 lb : : Gender: Male BSA: 2.6 m2 : :: 1980 Age: 45 yrs BP: 168/113 mmHg: :Reason For Study: Risk for aneurysm, Loweys-Susannah syndrome : :Ordering Physician: Gerald, : :Keyonna Cartwright Performed By: Barbara Anaya : :Referring: Keyonna Duarte : + + Interpretation Summary Patient hypertensive during exam. Pt had to turn supine due to hernia pain. The left ventricle is normal in size. Left ventricular systolic function is normal. The ejection fraction is estimated to be 55-60%. The right ventricle is normal in size and function. No significant valvular pathology seen. The IVC is of normal diameter and collapses greater than 50% with a sniff. This suggests a low right atrial pressure of 3 mm Hg. Aortic root diameter 4.1 cm. Considering body surface area of 2.6 m square, no significant enlargement. BP: 168/113 mmHg Procedure: A two-dimensional transthoracic echocardiogram with color flow and Doppler was performed. The study quality was technically adequate. There is no prior echocardiogram noted for this patient. The patient was in sinus rhythm with heart rates between 79-85 bpm during the exam. Left Ventricle: The left ventricle is normal in size. Left ventricular wall thickness is mildly increased. There is no thrombus. The ejection fraction is estimated to be 55-60%. Left ventricular systolic function is normal. There are no focal wall motion abnormalities. Diastolic parameters suggest a relaxation abnormality of the left ventricle, consistent with probable normal filling pressures. Right Ventricle: The right ventricle is normal in size and function. Atria: The left atrium is mildly dilated. Right atrial size is normal. There is no Doppler evidence for an interatrial shunt. Mitral Valve: The mitral valve is normal. There is no mitral valve stenosis. There is trace mitral regurgitation. Aortic Valve: The aortic valve is trileaflet. The aortic valve opens well. There is mild aortic valve sclerosis. There is no aortic valve stenosis. No aortic regurgitation is present. Tricuspid Valve: The tricuspid valve leaflets are thin and pliable. The right ventricular systolic pressure is estimated to be at least 20 mmHg based on an estimated right atrial pressure of 3 mm Hg. There is trace tricuspid regurgitation. Pulmonic Valve: The pulmonic valve is not well seen, but is grossly normal. There is a trace or physiologic amount of pulmonic regurgitation. Great Vessels: The aortic root is mildly dilated. The ascending aorta is normal in size. The aortic arch is at the upper limits of normal in size. The pulmonary artery is normal size. The IVC is of normal diameter and collapses greater than 50% with a sniff. This suggests a low right atrial pressure of 3 mm Hg. Pericardium/ Pleura There is no pleural effusion. MMode/2D Measurements & Calculations LVIDd: 5.6 cm LVOT diam: 2.7 cm LVIDs: 4.7 cm Ao root diam: 4.1 cm FS: 15.1 % asc Aorta Diam: 3.4 cm EPSS: 1.8 cm Ao Arch Diam (Prox Trans): 2.6 cm IVSd: 1.2 cm LVPWd: 1.3 cm LV kim. diameter/BSA (cm/m^2): 2.2 LV sys. diameter/BSA (cm/m^2): 1.8 LA A2 area: 30.1 cm2 RA long axis: 5.1 cm LA A4 area: 24.3 cm2 RA area: 17.9 cm2 LA length (vol): 6.4 cm RA vol: 54.2 ml LA vol: 97.2 ml RA : 21.0 ml/m2 LA vol index: 37.7 ml/m2 IVC diam: 1.9 cm TAPSE: 2.6 cm Doppler Measurements & Calculations Ao V2 max: 143.8 cm/sec LVOT Max Tyler: 91.4 cm/sec Ao V2 mean: 91.8 cm/sec LV V1 max P.3 mmHg Ao max P.3 mmHg LV V1 VTI: 21.1 cm Ao mean P.9 mmHg KJ(I,D): 5.0 cm2 Ao V2 VTI: 24.9 cm KJ(V,D): 3.8 cm2 sev ratio: 0.85 KJ indexed to BSA (cm^2/m^2): 1.9 MV E max tyler: 70.9 cm/sec TR max tyler: 203.0 cm/sec MV A max tyler: 93.2 cm/sec TR max P.5 mmHg MV E/A: 0.76 PA V2 max: 82.4 cm/sec Med Peak E' Tyler: 8.3 cm/sec PA V2 mean: 63.7 cm/sec E/E' med: 8.5 PA mean P.7 mmHg Lat Peak E' Tyler: 12.9 cm/sec PA pr(Accel): 25.9 mmHg E/E' lat: 5.5 E/e' average: 7.0 MV dec time: 0.20 sec MVA(VTI): 6.2 cm2 MV V2 mean: 66.8 cm/sec SV(LVOT): 125.1 ml MV mean P.0 mmHg MV V2 VTI: 20.2 cm Reading Physician:03:37 PM
== END ==
LOC: ECHO 09:18
PROVIDERS: PCP Pediatrics; Referring Provider Pediatrics; Visit Provider Pediatrics
DX: Q87.89 Other specified congenital malformation syndromes, not elsewhere classified (principal); I35.8 Other nonrheumatic aortic valve disorders; I77.810 Thoracic aortic ectasia
CPT/HCPCS: 93306

== ENCOUNTER → 2025-02-25 11:01 | Outpatient (CLI) | payer MEDICARE, MEDICAID, SELFPAY ==
[2025-02-25 11:47] LABS: Influenza A - CEPHEID Flu A NEGATIVE (NEGATIVE); Influenza B - CEPHEID Flu B NEGATIVE (NEGATIVE); Respiratory Syncytial Virus Negative (Negative)
[2025-02-25 11:53] LABS: COVID-19 CEPHEID 4-PLEX PCR Negative (Negative)
== END ==
LOC: LAB 11:02
PROVIDERS: PCP Pediatrics; Visit Provider Physician Assistant
DX: J06.9 Acute upper respiratory infection, unspecified (principal); R05.9 Cough, unspecified
CPT/HCPCS: 0241U

== ENCOUNTER → 2025-02-25 11:15 | Outpatient (CLI) | payer MEDICARE, MEDICAID, SELFPAY ==
--- NOTE | 2025-02-25 11:16 | DI.RAD.S_ITS ---
PROCEDURE: XR CHEST 2V INDICATIONS: cough/crackles x 2 weeks TECHNIQUE: 2 views of the chest were acquired. COMPARISON: [facility], CT, CT ABDOMEN PELVIS WITH CONTRAST, 11/12/2022, 9:55. FINDINGS: Surgical changes and devices: Right upper chest wall surgical clips. Lungs and pleura: Diffuse interstitial prominence. No pleural effusions or pneumothorax. Mediastinum: Large hiatal hernia. Heart size is normal. Bones and chest wall: No suspicious bony abnormalities. Decreased osseous mineralization. Scoliotic curvature with apparent lower thoracic compression deformities. Soft tissues appear unremarkable. IMPRESSION: Diffuse interstitial prominence, correlate for edema or atypical infection. Large hiatal hernia. Scoliotic curvature with apparent lower thoracic compression deformities. Dictated by: King Bowers M.D. on 02/25/2025 at 14:32 Approved by: King Bowers M.D. on 02/25/2025 at 14:34
== END ==
PROVIDERS: PCP Pediatrics; Referring Provider Physician Assistant; Visit Provider Physician Assistant
DX: J06.9 Acute upper respiratory infection, unspecified (principal); K44.9 Diaphragmatic hernia without obstruction or gangrene; M41.9 Scoliosis, unspecified; R05.9 Cough, unspecified
CPT/HCPCS: 0241U; 71046